=== PATIENT | female | born 2000 | race Caucasian/White ===

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

== ENCOUNTER 2023-10-08 13:50 | Outpatient (CLI) | payer OTHER, SELFPAY ==
--- NOTE | ~2023-10-08 | US_ITS ---
EXAMINATION: US pelvic complete w TV DATE: 10/08/2023 14:16 INDICATION: R10.2 - Pelvic and perineal pain TECHNIQUE: Multiple transabdominal and endovaginal sonographic images of the pelvis were obtained. COMPARISON: None. FINDINGS: Uterus: 7.4 x 4.5 x 3.7 cm. Endometrial complex measures 7 mm. Menstrual blood in the cervix. Right Ovary: 3.5 x 2.3 x 2.6 cm. Vascular flow is present. Multiple follicles. Left Ovary: 2.8 x 1.7 x 2.3 cm. Vascular flow is present. Multiple follicles. There is no free fluid in the pelvis. IMPRESSION: Normal pelvic sonogram findings. Reviewed, dictated and finalized at location K.
== END 2023-10-08 13:51 ==
LOC: GOSHIMG 13:55
PROVIDERS: PCP Student in an Organized Health Care Education/Training Program; Visit Provider Student in an Organized Health Care Education/Training Program
DX: R10.2 Pelvic and perineal pain (principal)
CPT/HCPCS: 76830; 76856